=== PATIENT | male | born 1950 | race Caucasian/White ===

== ENCOUNTER 2018-02-10 18:14 | Emergency (ER) | payer BC, MEDICARE ==
[2018-02-10] MEDS ORDERED: Acetaminophen TAB* 325 MG PO ONE (18:35)
[2018-02-10] MEDS ORDERED: NS 0.9% 1000 ML* 1,000 ML IV ONE (18:35)
--- NOTE | 2018-02-10 18:48 | ED ---
HPI Febrile Illness - HPI Summary HPI Summary: Patient is a 67-year-old male who presents emergency department for fever, body aches and decreased urination that started yesterday. Patient denies vomiting, diarrhea, dysuria, hematuria. He notes some mild abdominal distress comfort. 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 Patient otherwise denies chest pain, shortness of breath, cough, upper respiratory symptoms. Symptoms are moderate in severity. No current modifying factors. 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 Pain Intensity: 2 - Allergy/Home Medications Allergies/Adverse Reactions: Allergies Allergy/AdvReac Type Severity Reaction Status Date / Time No Known Allergies Allergy Verified 02/10/18 18:22 Home Medications: Home Medications Tamsulosin CAP* [Flomax CAP*] 1 tab PO BID 02/10/18 [History Confirmed 02/10/18] amLODIPine TAB* [Norvasc 5 mg TAB*] 02/10/18 [History] PMH/Surg Hx/FS Hx/Imm Hx Previously Healthy: Yes - Immunization History Date of Influenza Vaccine: 2017 Infectious Disease History: No Infectious Disease History: Denies: Traveled Outside the [place] in Last 30 Days - Family History Known Family History: Positive: Non-Contributory - Social History Occupation: Employed Full-time Lives: With Family Alcohol Use: Rare Substance Use Type: Reports: None Smoking Status (MU): Never Smoked Tobacco Review of Systems Positive: Fever, Chills Eyes: Negative ENT: Negative Cardiovascular: Negative Respiratory: Negative Gastrointestinal: Negative Negative: Abdominal Pain, Vomiting, Diarrhea, Nausea Positive: frequency. Negative: flank pain, hematuria Positive: Myalgia Skin: Negative Neurological: Negative All Other Systems Reviewed And Are Negative: Yes Physical Exam Triage Information Reviewed: Yes Vital Signs On Initial Exam: Initial Vitals Temp Pulse Resp BP Pulse Ox 101.4 F 72 16 140/67 94 02/10/18 18:18 18 18:18 18 18:18 02/10/18 18:18 02/10/18 18:18 Vital Signs Reviewed: Yes Appearance: Positive: Ill-Appearing - Patient lying in bed, appears to feel unwell but nontoxic. Sister present. Skin: Positive: Warm, Dry Head/Face: Positive: Normal Head/Face Inspection Eyes: Positive: Normal, EOMI, GABE, Conjunctiva Clear Neck: Positive: Supple Respiratory/Lung Sounds: Positive: Clear to Auscultation, Breath Sounds Present. Negative: Rales, Rhonchi, Wheezes Cardiovascular: Positive: Normal, RRR Abdomen Description: Positive: Other: - lower abd. tenderness on palpation.. Negative: Distended, Guarding Musculoskeletal: Positive: Normal, Strength/ROM Intact Neurological: Positive: Normal, CN Intact II-III Psychiatric: Positive: Affect/Mood Appropriate Diagnostics - Vital Signs Vital Signs Temp Pulse Resp BP Pulse Ox 02/10/18 18:18 101.4 F 72 16 140/67 94 - Laboratory Result Diagrams: 02/10/18 18:43 02/10/18 18:43 Lab Statement: Any lab studies that have been ordered have been reviewed, and results considered in the medical decision making process. Course/Dx - Course Course Of Treatment: Patient presenting with fever and urinary frequency. Temperature in the ears 101.4F. Heart rate 70 bpm, oxygen saturations 94% room air which is low normal, blood pressure stable 140/67. We'll obtain basic labs. Patient started IV fluids and Tylenol ordered for pain. Pt. has mild tenderness to lower abd. We'll hold off on CAT scan at this time. CBC shows mild elevation in WBC at 12.2. Creatine 1.30, GFR 66. Mild elevation in LFTs. Pt. has no prior labs in the system for comparison. CXR negative acute findings. U/A shows trace ketones and RBCs but is negative for bacteria or luekocytes. Pt.'s VS improved after medication. On re-exam he is resting comfortable. He still has mild lower abd. tenderness, will obtain noncon ct of abd/pelvis to evaluate for possible appendicits, diverticulitis. CT scan shows incidental findings without acute findings, reading per virtual radiology. Results were discussed with patient. Incidental CAT scan findings were discussed. Labs were discussed with patient states his creatinine is usually around 1.3. Negative flu. Unclear etiology of fever but suspect viral in nature. Patient control being discharged home. Advised close family doctor tomorrow for close follow-up appointment. Continue Tylenol and home as directed for fever and pain. Return to the ear symptoms change or worsen. Patient understands and agrees with plan. 2200: When pt.'s nurse was removing his IV, blood splashed into nurses eyes. Pt. consented for blood borne pathogen testing and labs added. - Febrile Illness Differential Diagnoses: Fever of Unknown Origin, Pneumonia, Pyelonephritis, Sepsis - Diagnoses Provider Diagnoses: Fever Discharge - Sign-Out/Discharge Documenting (check all that apply): Patient Departure - Discharge Plan Condition: Improved Disposition: HOME Patient Education Materials: Fever in Adults (ED) Referrals: [facility] [Outside] Additional Instructions: Call your PCP tomorrow for a close f.u appointment Increase fluids and rest Can take tylenol for fever and body aches as directed Return to ER if symptoms change or worsen - Billing Disposition and Condition Condition: IMPROVED Disposition: Home
[2018-02-10 18:56] LABS: ABS Basophils 0 10^3/ul (0-0.2); ABS Eosinophils 0 10^3/ul (0-0.6); ABS Lymphocytes 0.8 10^3/ul (1.0-4.8); ABS Monocytes 1.1 10^3/ul (0-0.8); ABS Neutrophils 10.4 10^3/ul (1.5-7.7); ABS Nucleated RBC 0 10^3/ul; Eosinophil % 0 % (0-6); Hematocrit 40 % (42-52); Hemoglobin 14.1 g/dl (14.0-18.0); Lymphocyte % 6.3 % (25-47); Mean Corpuscular HGB Conc 35 g/dl (31-36); Mean Corpuscular Hemoglobin 30 pg (27-31); Mean Corpuscular Volume 85 fL (80-94); Mean Platelet Volume 9.2 fL (7.4-10.4); Nucleated Red Blood Cells % 0.1; Platelet Count 189 10^3/ul (150-450); Red Blood Count 4.74 10^6/ul (4.00-5.40); Red Cell Distribution Width 13 % (10.5-15); White Blood Count 12.2 10^3/ul (3.5-10.8)
[2018-02-10 19:15] LABS: EGFR Non-African American 55.2 (>60)
[2018-02-10 20:14] LABS: Urine Appearance Clear; Urine Blood 2+ (Negative); Urine Color Yellow; Urine Ketones Trace (Negative); Urine Protein Negative (Negative); Urine Red Blood Cell Absent (Absent); Urine Specific Gravity 1.019 (1.010-1.030); Urine Urobilinogen Negative (Negative); Urine White Blood Cell Trace(0-5/hpf) (Absent)
[2018-02-10] MEDS ORDERED: Potassium Chlor TAB* 20 MEQ TAB.ER PO ONE (21:47)
[2018-02-10 22:38] VITALS: BP 120/71
== END 2018-02-10 22:48 | disposition home or self-care (01) ==
LOC: ED 18:14
DX: R50.9 Fever, unspecified (principal)
CPT/HCPCS: 36415; 71045; 74176; 80053; 81003; 81015; 83605; 85025; 86703; 86706; 86803; 87086; 87340; 96360; 99282; A9270-GY